=== PATIENT | female | born 1950 | race Caucasian/White ===

== ENCOUNTER → 2017-12-12 15:39 | Outpatient (CLI) | payer MEDICARE, SELFPAY ==
[2017-12-12 16:12] LABS: Add Manual Diff / Slide Review NO; Basophils Percent Auto 0.6 % (0-2); Eosinophils Percent Auto 2.7 % (2-4); Hematocrit 38.9 % (36-46); Hemoglobin 13.4 g/dL (12.0-16.0); Lymphocytes Percent Auto 35.5 % (25-40); Mean Corpuscular HGB Conc 34.4 % (30-36); Mean Corpuscular Hemoglobin 32.4 PG (26-34); Mean Corpuscular Volume 94.2 fL (80-100); Monocytes Percent Auto 8.2 % (3-14); Neutrophils Absolute Auto 3300 /uL (3000-5900); Platelet Count 311 X10^3/uL (150-400); Red Blood Cell Count 4.13 X10^6/uL (4.0-5.2); Red Cell Distribution Width 13.4 % (11.6-14.8); White Blood Cell Count 6.3 X10^3/uL (4.5-11.0)
[2017-12-12 16:20] LABS: Hemoglobin A1C% w Est Avg Glu 5.8 % (4.0-6.0)
[2017-12-12 16:24] LABS: Prothrombin Time 10.7 SECONDS (10.1-12.7)
[2017-12-12 16:28] LABS: Alanine Aminotransferase 72 IU/L (9-52); Albumin 4.8 g/dL (3.5-5.0); Albumin Globulin Ratio 1.6 (1.0-2.8); Alkaline Phosphatase 104 U/L (38-126); Aspartate Aminotransferase 59 IU/L (14-36); BUN Creatinine Ratio 18.3 (6-22); Bilirubin Total 0.4 mg/dL (0.2-1.3); Blood Urea Nitrogen 11 mg/dL (7-17); Calcium 10.3 mg/dL (8.4-10.2); Carbon Dioxide 28 mmol/L (22-32); Chloride 99 mmol/L (98-107); Cholesterol 249 mg/dL (140-199); Estimated Glomerular Filt Rate > 60.0 mL/min (>60); Glucose 129 mg/dL (80-110); HDL Cholesterol 76 mg/dL (40-60); HEMOLYSIS < 15 (0-50); LDL Cholesterol Calculated 138 mg/dL (<100); Potassium 4.4 mmol/L (3.4-5.1); Sodium 140 mmol/L (137-145); Total Protein 7.8 g/dL (6.3-8.2); Triglycerides 174 mg/dL (35-150)
[2017-12-12 17:19] LABS: Thyroid Stimulating Hormone 1.52 uIU/mL (0.47-4.68)
== END ==
PROVIDERS: PCP Physician Assistant
DX: F34.1 Dysthymic disorder (principal); G89.29 Other chronic pain; M54.5 Low back pain; Z51.81 Encounter for therapeutic drug level monitoring; Z01.818 Encounter for other preprocedural examination; I34.1 Nonrheumatic mitral (valve) prolapse; R73.09 Other abnormal glucose; I10 Essential (primary) hypertension
CPT/HCPCS: 36415; 80053; 80061; 83036; 84443; 85025; 85610

== ENCOUNTER → 2017-12-13 09:33 | Outpatient (CLI) | payer MEDICARE, SELFPAY ==
[2017-12-13 10:20] LABS: Appearance Urine UA CLEAR; Bilirubin Urine UA NEGATIVE (NEGATIVE); Color Urine UA YELLOW; Glucose Urine UA NEGATIVE (Normal); Ketones Urine UA TRACE (NEGATIVE); Leukocyte Esterase Urine UA 3+ (NEGATIVE); Nitrite Urine UA Negative (Negative); Occult Blood Urine UA TRACE-LYSED (Negative); Protein Urine UA TRACE (Negative); Specific Gravity Urine UA 1.015 (1.000-1.035)
[2017-12-13 10:50] LABS: RBC Urine 1-5/HPF (0-5/HPF)
[2017-12-13 10:51] LABS: Bacteria Urine Many (>30); Squamous Epithelial Cell Urine >30 /HPF; WBC Urine >100/HPF (0-5/HPF)
[2017-12-13 10:52] LABS: Culture Indicated Urine Cult Not Indicated
== END ==
PROVIDERS: PCP Physician Assistant
DX: F34.1 Dysthymic disorder (principal); G89.29 Other chronic pain; M54.5 Low back pain; Z51.81 Encounter for therapeutic drug level monitoring
CPT/HCPCS: 81003; 81015

== ENCOUNTER → 2017-12-25 14:38 | Outpatient (CLI) | payer MEDICARE, SELFPAY | PROVIDERS: PCP Physician Assistant; Visit Provider Physician Assistant | DX: Z87.440 Personal history of urinary (tract) infections (principal); Z01.818 Encounter for other preprocedural examination ==

== ENCOUNTER → 2018-02-08 14:54 | Outpatient (CLI) | payer MEDICARE, SELFPAY ==
[2018-02-08 15:47] LABS: Add Manual Diff / Slide Review NO; Basophils Percent Auto 1.4 % (0-2); Eosinophils Percent Auto 2.8 % (2-4); Hematocrit 39.8 % (36-46); Hemoglobin 13.5 g/dL (12.0-16.0); Lymphocytes Percent Auto 48.1 % (25-40); Mean Corpuscular Hemoglobin 32.3 PG (26-34); Monocytes Percent Auto 6.7 % (3-14); Neutrophils Absolute Auto 2000 /uL (3000-5900); Platelet Count 234 X10^3/uL (150-400); Red Blood Cell Count 4.19 X10^6/uL (4.0-5.2); Red Cell Distribution Width 13.4 % (11.6-14.8); White Blood Cell Count 4.8 X10^3/uL (4.5-11.0)
== END ==
PROVIDERS: Visit Provider Orthopaedic Surgery
DX: Z01.818 Encounter for other preprocedural examination (principal)
CPT/HCPCS: 36415; 85025

== ENCOUNTER 2018-02-19 11:23 | Emergency (ER) | payer MEDICARE, SELFPAY ==
[2018-02-19 11:30] VITALS: BP 177/98; PULSE 109; RESP 18; TEMP 36.9; O2SAT 97; BMI 25.0
[2018-02-19 11:48] VITALS: BP 202/102; PULSE 105; RESP 20; O2SAT 96
--- NOTE | 2018-02-19 12:02 | ED_ITS ---
HPI - Abdominal Pain General Chief Complaint: Abdominal Pain Stated Complaint: surgery yesterday and is now having pains Time Seen by Provider: 02/19/18 11:40 Source: patient Mode of arrival: ambulatory Limitations: no limitations History of Present Illness HPI narrative: Patient is a 67-year-old female who yesterday underwent a nerve stimulator placement under general anesthesia at the outpatient clinic at [facility]. States that after she awoke from her surgery yesterday she started to have bilateral lower abdominal pain. She states that she talked to the operative provider about this yesterday and he thought that it was secondary to the fact that she was on her abdomen during the surgery. She states that is a sharp pain that starts in the left lower quadrant radiates the right. No urinary symptoms no vaginal bleeding no bowel changes. No fevers. Related Data Home Medications Medication Instructions Recorded Confirmed [handicap placard] 1 ea MISCELLANEOUS DIRECTED 02/19/18 02/19/18 duloxetine [Cymbalta] 30 mg PO QAM 02/19/18 02/19/18 oxycodone-acetaminophen 1 - 2 tab PO Q4H PRN 02/19/18 02/19/18 Previous Rx's Medication Instructions Recorded escitalopram 10 mg tablet 10 mg PO QDAY #30 tab 11/23/17 lorazepam 1 mg tablet 1 mg PO BIDP PRN #60 tab 01/31/18 bupropion HCl XL 300 mg 24 hr 300 mg PO QDAY #30 tab 02/12/18 tablet, extended release gabapentin 600 mg tablet 600 mg PO .COMPLEX #180 tab 02/12/18 Allergies Allergy/AdvReac Type Severity Reaction Status Date / Time No Known Drug Allergies Allergy Verified 02/19/18 11:33 Review of Systems Constitutional Denies fever(s) and Denies headache(s) ENT Ears, Nose, Mouth, and Throat: Denies headache(s) Cardiovascular Denies chest pain and Denies dyspnea Respiratory Denies dyspnea Gastrointestinal Gastrointestinal: Reports abdominal pain, Denies nausea and Denies vomiting Genitourinary Denies dysuria Musculoskeletal Denies myalgias and Denies arthralgias Integumentary/Breasts Denies rash Neurologic Denies headache(s) Hematologic/Lymphatic Denies easy bleeding and Denies easy bruising [facility] Medical History Lumbar stenosis (Acute) Anxiety (Chronic 1997) Cataracts, bilateral (Chronic 2014) Chronic back pain (Chronic) Depression (Chronic 1997) Herpes (Chronic) Lumbar disc disease (Chronic) Hemorrhoids (Resolved 1972) Surgical History Hx of laminectomy (Resolved 2014) Family History Mother Mental health disorder Father Cancer Brother No problems noted. Social History Smoking Status: Current every day smoker Exam Initial Vital Signs Initial Vital Signs: Vital Signs Temperature 98.5 F 02/19/18 11:30 Pulse Rate 109 H 02/19/18 11:30 Respiratory Rate 18 02/19/18 11:30 Blood Pressure 177/98 H 02/19/18 11:30 Pulse Oximetry 97 02/19/18 11:30 Const General: cooperative, well developed, well groomed and No acute distress Orientation: alert, awake and oriented x3 HENMT Head: normal to inspection and normocephalic Resp Effort & Inspection: normal respiratory effort Auscultation: clear to auscultation bilaterally Cardio Rate: regular rate Pulses: radial pulses present GI Inspection: non-distended Palpation: soft, No firm and tender (Tender to palpation left lower quadrant and suprapubic without guarding or rebound) Back/Spine/Pelvis Back: No CVA tenderness Skin Other: Surgical bandages covering a midthoracic wound and also a right posterior hip wound. No active bleeding. Neuro General: alert, awake and oriented x3 Extrem General: normal to inspection and capillary refill normal Psych Appearance: grossly normal and well kempt Course Orders Ordered: Discontinued Medications Sodium Chloride (Normal Saline 0.9%) 1,000 mls @ 1,000 mls/hr IV BOLUS ONE Stop: 02/19/18 13:03 Last Admin: 02/19/18 12:49 Dose: Not Given Morphine Sulfate (Morphine) 4 mg IM NOW ONE Stop: 02/19/18 12:35 Last Admin: 02/19/18 12:48 Dose: 4 mg Vital Signs - 8 hr 02/19/18 11:30 02/19/18 11:48 02/19/18 12:13 Temperature 98.5 F Pulse Rate 109 H 105 H 96 H Respiratory Rate 18 20 16 Blood Pressure 177/98 H Blood Pressure [Left Arm] 202/102 H 171/95 H Pulse Oximetry 97 96 94 02/19/18 13:04 Temperature Pulse Rate 91 H Respiratory Rate 16 Blood Pressure Blood Pressure [Left Arm] 157/81 H Pulse Oximetry 95 MDM - Abdominal Pain MDM Narrative Medical decision making narrative: A discussion with the patient regarding her symptoms. I do feel that her abdominal pain today is directly related to the surgery that she had yesterday. It could be the result of her being on her abdomen during the procedure. Initially I ordered CT scan and labs to evaluate for intra-abdominal surgical issue such as diverticulitis. Prior to obtaining any of these the patient told nursing staff that she would like to talk with me again. During this re-evaluation the patient stated that she remembered that 10 years ago something very similar to this happened and she received a shot of pain medication in the symptoms went completely away and have not returned. I informed the patient that I would be willing to give her 1 injection of pain medication. After this discussion the patient opted not to have any labs drawn and not have the CT scan done. She acknowledged fact that we could be missing an intra-abdominal surgical issue or an infectious issue requiring antibiotics. She acknowledged this and stated that she would like to hold for now and see if the pain medication work for her. She was given 4 mg of morphine IM. She was given return precautions. Both her and her expressed understanding and agreement with this plan. Discharge Plan Departure Patient Disposition: Home Clinical Impression: Abdominal pain Discharge Date/Time: 02/19/18 13:21 Interventions: ED Discharge Assessment Last Done: 02/19/18 13:17 Instructions: DI for Abdominal Pain-Adult Activity Restrictions/Additional Instructions: recommend to continue all of your medications as instructed. Contact your primary care doctor for a follow-up. Return to the ER for any new symptoms, worsening pain, inability to tolerate oral intake or any other concerning symptoms. Prescriptions: No Action escitalopram oxalate [Lexapro] 10 mg tablet 10 mg PO QDAY Qty: 30 RF: 2 lorazepam 1 mg tablet 1 mg PO BIDP PRN (Reason: anxiety) Qty: 60 RF: 0 bupropion HCl 300 mg tablet extended release 24 hr 300 mg PO QDAY Qty: 30 RF: 0 gabapentin [Neurontin] 600 mg tablet 600 mg PO .COMPLEX Qty: 180 RF: 1 duloxetine [Cymbalta] 30 mg capsule,delayed release(DR/EC) 30 mg PO QAM RF: 0 oxycodone-acetaminophen 5-325 mg tablet 1 - 2 tab PO Q4H PRN (Reason: Pain, Severe) RF: 0 [handicap placard] 1 ea miscellaneous DIRECTED RF: 0
[2018-02-19 12:13] VITALS: BP 171/95; PULSE 96; RESP 16; O2SAT 94
[2018-02-19] MEDS: MORPHINE 4 MG/ML INJ IM (12:48)
--- NOTE | 2018-02-19 12:49 | PC.NURSE ---
Upon entering room to start IV and obtain blood work patient and spouse requested to wait to speak to the provider. Dr sahu notified. After discussion of plan of care. IV and CT cancelled
[2018-02-19 13:04] VITALS: BP 157/81; PULSE 91; RESP 16; O2SAT 95
--- NOTE | 2018-02-19 13:18 | PC.NURSE ---
pt states pain now down to 310/ much better than arrival. in [place] with assist. dc
== END 2018-02-19 13:21 | disposition home or self-care (01) ==
PROVIDERS: Emergency Provider Emergency Medicine; PCP Orthopaedic Surgery
DX: R10.9 Unspecified abdominal pain (principal)
CPT/HCPCS: 96372; 99283; J2270

== ENCOUNTER → 2018-08-15 12:16 | Outpatient (CLI) | payer OTHER, SELFPAY ==
--- NOTE | 2018-08-15 12:17 | DI.RAD.S_ITS ---
PROCEDURE: XR ANKLE LT MIN 3V INDICATIONS: left ankle pain TECHNIQUE: 4 views of the ankle were acquired. COMPARISON: None. FINDINGS: Bones: There is obliquely oriented intra-articular fracture of the distal fibula. There may be a small avulsion fracture involving the anterior margin of the tibial plafond. The ankle mortise is well-maintained. There are degenerative changes of the talonavicular joint. No suspicious osseous lesion or dislocation is evident. Soft tissues: There is a moderate-sized tibiotalar joint effusion. Achilles tendon appears normal in thickness. IMPRESSION: 1. Nondisplaced lateral malleolus fracture with intra-articular involvement. 2. Possible avulsion fracture involving the anterior margin of the tibial plafond. The ankle mortise is maintained. Dictated by: Jose Juan Gonzales M.D. on 08/15/2018 at 12:10 Approved by: Jose Juan Gonzales M.D. on 08/15/2018 at 12:12
== END ==
PROVIDERS: PCP Student in an Organized Health Care Education/Training Program; Visit Provider Physician Assistant
DX: M25.572 Pain in left ankle and joints of left foot (principal); S82.65XA Nondisplaced fracture of lateral malleolus of left fibula, initial encounter for closed fracture
CPT/HCPCS: 73610

== ENCOUNTER → 2018-09-04 11:23 | Outpatient (CLI) | payer OTHER, SELFPAY ==
[2018-09-04 17:32] LABS: Vitamin D 25 Hydroxy (D3) 14.1 ng/mL (30.0-100.0)
== END ==
PROVIDERS: Family Provider Student in an Organized Health Care Education/Training Program; PCP Student in an Organized Health Care Education/Training Program; Visit Provider Physician Assistant
DX: S82.65XA Nondisplaced fracture of lateral malleolus of left fibula, initial encounter for closed fracture (principal)
CPT/HCPCS: 36415; 82306

== ENCOUNTER 2018-09-28 23:04 | Emergency (ER) | payer OTHER, SELFPAY ==
[2018-09-28 23:08] VITALS: BP 140/80; PULSE 82; RESP 16; TEMP 36.7; O2SAT 97; BMI 24.1
--- NOTE | 2018-09-28 23:53 | ED_ITS ---
HPI - Wound/Laceration General Chief Complaint: Wound/Laceration Stated Complaint: cut over left eye from a fall Time Seen by Provider: 09/28/18 23:41 Source: patient Mode of arrival: ambulatory Limitations: no limitations History of Present Illness HPI narrative: 68-year-old female here for evaluation of injuries that she sustained after falling at home. Patient has a walking boot on her left lower extremity secondary to a fibula fracture. She states that she was reaching for her kick scooter when she fell over. Hitting her head on the ground. Sustaining a cut. She does not know when her last tetanus shot was. No loss of consciousness. No other injuries reported from the event. Related Data Home Medications Medication Instructions Recorded Confirmed [handicap placard] 1 ea MISCELLANEOUS DIRECTED 02/19/18 08/15/18 Previous Rx's Medication Instructions Recorded bupropion HCl XL 300 mg 24 hr 300 mg PO QDAY #30 tab 03/21/18 tablet, extended release gabapentin 600 mg tablet 600 mg PO .COMPLEX #180 tab 04/17/18 lorazepam 1 mg tablet 1 mg PO BIDP PRN #60 tab 06/18/18 escitalopram 10 mg tablet 10 mg PO DAILY #90 tab 07/23/18 Allergies Allergy/AdvReac Type Severity Reaction Status Date / Time No Known Drug Allergies Allergy Verified 08/15/18 11:47 Review of Systems Constitutional Denies fever(s), Denies frequent falls and Denies headache(s) Eyes Denies change in vision and Denies diplopia ENT Ears, Nose, Mouth, and Throat: Denies vertigo, Denies dizziness, Denies headache(s), Denies neck pain, Denies tinnitus and Denies sore throat Cardiovascular Denies chest pain and Denies dyspnea Respiratory Denies dyspnea Gastrointestinal Gastrointestinal: Denies abdominal pain Musculoskeletal Denies back pain, Denies myalgias, Denies arthralgias and Denies neck pain Integumentary/Breasts Comments: Cut to left side of face above the eye Neurologic Denies vertigo, Denies dizziness, Denies frequent falls and Denies headache(s) Hematologic/Lymphatic Denies easy bleeding and Denies easy bruising Allergic/Immunologic Denies urticaria [facility] Medical History Lumbar stenosis (Acute) Anxiety (Chronic 1997) Cataracts, bilateral (Chronic 2014) Chronic back pain (Chronic) Depression (Chronic 1997) Herpes (Chronic) Lumbar disc disease (Chronic) Hemorrhoids (Resolved 1972) Surgical History Hx of laminectomy (Resolved 2014) Family History Mother Mental health disorder Father Cancer Brother No problems noted. Social History Smoking Status: Current every day smoker Family History Mother Mental health disorder Father Cancer Brother No problems noted. Social History Smoking Status: Current every day smoker Exam Initial Vital Signs Initial Vital Signs: Vital Signs Temperature 98.0 F 09/28/18 23:08 Pulse Rate 82 09/28/18 23:08 Respiratory Rate 16 09/28/18 23:08 Blood Pressure 140/80 09/28/18 23:08 Pulse Oximetry 97 09/28/18 23:08 Const General: cooperative, well developed, well groomed and No acute distress Orientation: alert, awake and oriented x3 HENMT Head: No raccoon eyes and other (Cut above left eye) Ears: TM's normal bilaterally Nose: external nose normal Mouth: oral mucosae normal Teeth and gingiva: dentition normal Throat: posterior oropharynx normal Eyes Pupils: PERRL EOM: EOM intact bilaterally Other: Patient with tenderness to palpation what feels like a step-off on the lateral aspect of the left upper orbital rim. Resp Effort & Inspection: normal respiratory effort Auscultation: clear to auscultation bilaterally Cardio Rate: regular rate Rhythm: regular rhythm Skin Other: Patient with a 6 cm laceration to the lateral aspect of the left upper eyelid. Neuro General: alert and awake Cognition: normal cognition Speech: speech normal Gait: normal gait Extrem Other: Walking boot left lower extremity Psych Appearance: grossly normal and well kempt Procedures Laceration Repair Laceration 1: Site: face Side (If applicable): left Size (cm): 6 Description: linear Depth: involves muscle layer (Avulsed periosteum) Local Anesthetic: lidocaine 1% Amount of anesthesia used (mL): 6 Pre-repair: wound explored Skin layer closed with: other (Chromic) Size (cm): 4-0 Number of sutures: 17 Technique: simple, interrupted Subcutaneous layer closed with: chromic gut Size: 4-0 Number of sutures: 3 Technique: simple, interrupted Course Orders Ordered: ED Orders 09/28/18 23:57 CT facial bones wo con Stat CT head/brain wo con Stat Discontinued Medications Diphtheria/Tetanus/Acell Pertussis (Adacel) 0.5 ml IM .ONCE ONE Stop: 09/29/18 00:45 Last Admin: 09/29/18 00:47 Dose: 0.5 ml Vital Signs - 8 hr 09/28/18 23:08 09/29/18 01:28 Temperature 98.0 F Pulse Rate 82 83 Respiratory Rate 16 16 Blood Pressure 140/80 Blood Pressure [Left Arm] 133/66 Pulse Oximetry 97 96 MDM - Wound/Laceration Imaging Data CT scan - head: Radiologist's impression: No acute intracranial abnormality. Old lacunar infarct in the zainab. Mild left supraorbital frontal scalp soft tissue swelling. No underlying fracture. CT maxillofacial: Radiologist's impression: No acute facial fracture. MDM Narrative Medical decision making narrative: Neurovascularly intact. Tetanus was updated. Laceration was closed as described above. CT scan is negative for acute fractures. Patient was given care instructions and return precautions with regard to the fall and also the laceration and the stitches. She expressed understanding and agreement with plan. Discharge Plan Departure Patient Disposition: Home Clinical Impression: Laceration Fall Qualifiers: Encounter type: initial encounter Qualified Code(s): W19.XXXA - Unspecified fall, initial encounter Discharge Date/Time: 09/29/18 02:12 Interventions: ED Discharge Assessment Last Done: 09/29/18 02:11 Instructions: DI for Laceration Repair Activity Restrictions/Additional Instructions: The stitches that were placed today are absorbable which means they will come out on their own. You can shower like normal. You can use soap and water like normal. Do not scrub the area. Expect swelling so use ice. I would not be schroeder rprised if you have a black eye tomorrow. Contact your primary care doctor for a follow-up. Return to the emergency department for any new or worsening symptoms Prescriptions: No Action bupropion HCl 300 mg tablet extended release 24 hr 300 mg PO QDAY Qty: 30 RF: 5 gabapentin [Neurontin] 600 mg tablet 600 mg PO .COMPLEX Qty: 180 RF: 1 lorazepam 1 mg tablet 1 mg PO BIDP PRN (Reason: anxiety) Qty: 60 RF: 5 escitalopram oxalate 10 mg tablet 10 mg PO DAILY Qty: 90 RF: 1 [handicap placard] 1 ea miscellaneous DIRECTED RF: 0 Referrals: Aaron Do MD [Primary Care Provider] -
--- NOTE | 2018-09-28 23:57 | DI.CT.S_ITS ---
PROCEDURE: CT HEAD/BRAIN WO CON INDICATIONS: Fall with possible facial fracture TECHNIQUE: Noncontrast 4.5 mm thick angled axial sections acquired from the foramen magnum to the vertex, with coronal and sagittal reformats. For radiation dose reduction, the following was used: automated exposure control, adjustment of mA and/or kV according to patient size. COMPARISON: [facility], CT, CT FACIAL BONES WO CON, 09/29/2018, 0:17. FINDINGS: Image quality: Excellent. CSF spaces: Basal cisterns are patent. No extra-axial fluid collections. The ventricles are symmetric in size and shape. Brain: No intracranial bleeds or masses. There is cerebral volume loss for age, with resultant ventricular and sulcal prominence. There are periventricular and deep white matter chronic small vessel ischemic changes. There is a focal remote infarctions involving the right lungs, as on series 2 image 11. There is intracranial internal carotid artery atherosclerosis. Skull and face: Mild soft tissue swelling is seen within the left supraorbital region. No associated fracture is seen. Calvarium and visualized facial bones appear intact, without suspicious lesions. Incidental note is made of hyperostosis frontalis. This is not considered to be pathologic in a woman of this age. Sinuses: Visualized sinuses and mastoids are clear. IMPRESSION: Left supraorbital soft tissue swelling, without an associated fracture. No acute intracranial hemorrhage. No acute intracranial process is seen. Remote right zainab infarct. Note is made of age-appropriate brain parenchymal volume loss and chronic small vessel ischemic changes. Note: No significant discrepancy from the preliminary report. Dictated by: Asael Mariscal M.D. on 09/29/2018 at 7:47 Approved by: Asael Mariscal M.D. on 09/29/2018 at 7:51 Approved by: Asael Mariscal M.D. 09/29/2018 7:50
--- NOTE | 2018-09-28 23:57 | DI.CT.S_ITS ---
PROCEDURE: CT FACIAL BONES WO CON INDICATIONS: Fall with wound left superior eye concern for fracture TECHNIQUE: Noncontrast 2.5 mm thick axial images acquired from the mandible through the frontal sinuses, with coronal and sagittal reformatting. For radiation dose reduction, the following was used: automated exposure control, adjustment of mA and/or kV according to patient size. COMPARISON: [facility], CT, CT HEAD/BRAIN WO CON, 09/29/2018, 0:10. FINDINGS: Image quality: Excellent. Bones and teeth: Orbital moore are intact. Sinus moore show no fracture or deformity. Nasal bones and septum are intact. Visualized portions of the mandible demonstrate no fractures or subluxation. Zygomatic arches are intact. Pterygoid plates are intact. Visualized portions of the skull base and auditory canals are intact. Incidental note is made of hyperostosis frontalis. This is not considered to be pathologic in a woman of this age. Sinuses: Mucosal thickening is seen within the maxillary sinuses. There is thickening of the moore of the left maxillary sinus, which is suggestive of prior chronic sinus disease. Mastoid air cells are aerated. Soft tissues: Mild left supraorbital soft tissue swelling is seen. No enlarged lymph nodes. No soft tissue lacerations or debris. Vascular: Visualized vascular structures appear normal in the absence of contrast. Bony vascular foramina and canals are intact. IMPRESSION: Left supraorbital soft tissue swelling, without an associated facial fracture. Note: No significant discrepancy from the preliminary report. Dictated by: Asael Mariscal M.D. on 09/29/2018 at 7:51 Approved by: Asael Mariscal M.D. on 09/29/2018 at 7:54
[2018-09-29] MEDS: TET,DIPH,PERTUSS(ACELL),VAC/PF 0.5 ML SYRINGE IM (00:47)
--- NOTE | 2018-09-29 01:10 | PC.NURSE ---
Dr. Cooper at bedside to suture.
[2018-09-29 01:28] VITALS: BP 133/66; PULSE 83; RESP 16; O2SAT 96
== END 2018-09-29 02:12 | disposition home or self-care (01) ==
PROVIDERS: Emergency Provider Emergency Medicine; Family Provider Student in an Organized Health Care Education/Training Program; PCP Student in an Organized Health Care Education/Training Program
DX: S01.112A Laceration without foreign body of left eyelid and periocular area, initial encounter (principal); W19.XXXA Unspecified fall, initial encounter; Z23 Encounter for immunization
CPT/HCPCS: 12053; 70450; 70486; 90471; 99283; 99284; 90715

== ENCOUNTER → 2019-06-21 12:08 | Outpatient (CLI) | payer OTHER, SELFPAY ==
--- NOTE | 2019-06-21 12:10 | DI.RAD.S_ITS ---
PROCEDURE: XR RIBS RT MIN 3V W CXR 1V INDICATIONS: pain to lower posterior right ribs, r/o fx TECHNIQUE: 2 views of the right ribs were acquired, along with a single view chest. COMPARISON: None. FINDINGS: Surgical changes and devices: There is an epidural neurostimulator lead visualized injecting over the lower thoracic spine. Bones and chest wall: There are mildly displaced fractures of the right posterolateral 9th and 10th ribs. There are also old healed fractures of the right 3rd through 5th anterior ribs. No suspicious bony lesions. Overlying soft tissues appear unremarkable. Lungs and pleura: No pleural effusions or pneumothorax. Lungs appear clear. Mediastinum: Mediastinal contours appear normal. Heart size is normal. IMPRESSION: 1. Mildly displaced fractures of the right posterior 9th and 10th ribs. 2. Old healed fractures of the right 3rd through 5th anterior ribs. Dictated by: Leif Elizabeth M.D. on 06/21/2019 at 12:09 Approved by: Leif Elizabeth M.D. on 06/21/2019 at 12:11
== END ==
PROVIDERS: Family Provider Student in an Organized Health Care Education/Training Program; PCP Student in an Organized Health Care Education/Training Program; Referring Provider Physician Assistant; Visit Provider Physician Assistant
DX: S20.211A Contusion of right front wall of thorax, initial encounter (principal); S22.41XA Multiple fractures of ribs, right side, initial encounter for closed fracture; X58.XXXA Exposure to other specified factors, initial encounter
CPT/HCPCS: 71101

== ENCOUNTER → 2021-05-26 11:46 | Outpatient (CLI) | payer OTHER, SELFPAY ==
[2021-05-26 12:03] LABS: Add Manual Diff / Slide Review NO; Basophils Absolute Auto 0 /uL (0-100); Basophils Percent Auto 0.3 % (0-2); Eosinophils Absolute Auto 600 /uL (0-450); Eosinophils Percent Auto 5.8 % (2-4); Hematocrit 41.4 % (36-46); Lymphocytes Absolute Auto 2500 /uL (1100-4500); Lymphocytes Percent Auto 24.8 % (25-40); Mean Corpuscular HGB Conc 33.7 % (30-36); Mean Corpuscular Hemoglobin 30.2 PG (26-34); Mean Corpuscular Volume 89.5 fL (80-100); Monocytes Absolute Auto 800 /uL (0-900); Neutrophils Absolute Auto 6200 /uL (1500-7000); Neutrophils Percent Auto 61.1 % (50-75); Platelet Count 438 X10^3/uL (150-400); Red Blood Cell Count 4.63 X10^6/uL (4.0-5.2); Red Cell Distribution Width 12.9 % (11.6-14.8); White Blood Cell Count 10.1 X10^3/uL (4.5-11.0)
[2021-05-26 12:21] LABS: Alanine Aminotransferase 21 IU/L (<35); Albumin 3.9 g/dL (3.5-5.0); Albumin Globulin Ratio 1.3 (1.0-2.8); Alkaline Phosphatase 100 U/L (38-126); Aspartate Aminotransferase 26 IU/L (14-36); BUN Creatinine Ratio 18.4 (6-22); Bilirubin Total 0.7 mg/dL (0.2-1.3); Blood Urea Nitrogen 16 mg/dL (7-17); Calcium 10.4 mg/dL (8.4-10.2); Carbon Dioxide 29 mmol/L (22-32); Chloride 98 mmol/L (98-107); Estimated Glomerular Filt Rate > 60.0 mL/min (>60); Glucose 103 mg/dL (80-110); HEMOLYSIS 24 (0-50); Lipase 396 U/L (23-300); Potassium 4.3 mmol/L (3.4-5.1); Sodium 134 mmol/L (137-145); Total Protein 6.9 g/dL (6.3-8.2)
== END ==
PROVIDERS: Family Provider Student in an Organized Health Care Education/Training Program; PCP Student in an Organized Health Care Education/Training Program; Referring Provider Physician Assistant; Visit Provider Physician Assistant
DX: R10.30 Lower abdominal pain, unspecified (principal)
CPT/HCPCS: 36415; 80053; 83690; 85025

== ENCOUNTER → 2021-05-30 11:11 | Outpatient (CLI) | payer OTHER, SELFPAY ==
[2021-05-30 12:28] LABS: Clostridium Difficile Tox PCR Negative for C. diff (Negative)
== END ==
PROVIDERS: Family Provider Student in an Organized Health Care Education/Training Program; PCP Student in an Organized Health Care Education/Training Program; Referring Provider Physician Assistant; Visit Provider Physician Assistant
DX: R10.30 Lower abdominal pain, unspecified (principal)
CPT/HCPCS: 87045; 87177; 87493; 87899

== ENCOUNTER → 2022-06-20 12:26 | Outpatient (CLI) | payer OTHER, SELFPAY ==
--- NOTE | 2022-06-20 12:28 | DI.RAD.S_ITS ---
PROCEDURE: XR DEXA AXIAL SKELETON INDICATIONS: asymptomatic age related postmenopausal state COMPARISON: None. FINDINGS: This blank DEXA report has been sent in error by the PACS system. The correct and complete report will be forthcoming in 1-2 days. Thank you for your patience and understanding. Dictated by: Aisha Ma M.D. on 06/22/2022 at 8:29 Approved by: Aisha Ma M.D. on 07/13/2022 at 13:50
--- NOTE | 2022-06-20 12:28 | DI.MG.S_ITS ---
BILATERAL DIGITAL SCREENING MAMMOGRAM 3D/2D WITH CAD: 06/20/2022 CLINICAL: Routine screening. Family history of breast cancer. Comparison is made to exam dated: 06/16/2013 mammogram - outside location. Both breasts are heterogeneously dense, which may obscure small masses (category c / 51-75% glandular tissue). Current study was also evaluated with a Computer Aided Detection (CAD) system. No significant masses, calcifications, or other findings are seen in either breast. There has been no significant interval change. IMPRESSION: NEGATIVE There is no mammographic evidence of malignancy. A 1 year screening mammogram is recommended. Based on the Tyrer Cuzick model (a risk assessment model) the patient's lifetime risk is 5.8% and her 10 year risk is 3.7%. According to the ACR, ACS, and NCCN guidelines, an annual breast MRI exam along with mammogram is recommended if the patient's lifetime risk is 20% or greater. This exam was interpreted at Station ID: [id number]. NOTE: For mammograms, a report in lay terms will be sent to the patient. Approximately 15% of breast malignancies will not be visualized mammographically. In the management of a palpable breast mass, a negative mammogram must not discourage biopsy of a clinically suspicious lesion. Electronically Signed By: Radames Lyman M.D., jr/madina:06/20/2022 13:35:28 letter sent: Normal Exam ACR BI-RADS Category 1: Negative [id number]
== END ==
PROVIDERS: Family Provider Student in an Organized Health Care Education/Training Program; PCP Student in an Organized Health Care Education/Training Program; Referring Provider Student in an Organized Health Care Education/Training Program; Visit Provider Student in an Organized Health Care Education/Training Program
DX: Z78.0 Asymptomatic menopausal state (principal); Z12.31 Encounter for screening mammogram for malignant neoplasm of breast; Z80.3 Family history of malignant neoplasm of breast; Z13.820 Encounter for screening for osteoporosis; F17.200 Nicotine dependence, unspecified, uncomplicated
CPT/HCPCS: 77063; 77067; 77080

== ENCOUNTER → 2023-08-29 14:39 | Outpatient (CLI) | payer OTHER, SELFPAY ==
[2023-08-29 15:18] LABS: Add Manual Diff / Slide Review NO; Basophils Absolute Auto 100 /uL (0-100); Basophils Percent Auto 1.2 % (0-2); Eosinophils Absolute Auto 200 /uL (0-450); Eosinophils Percent Auto 1.6 % (2-4); Hematocrit 41.4 % (36-46); Hemoglobin 14.1 g/dL (12.0-16.0); Lymphocytes Absolute Auto 2800 /uL (1100-4500); Lymphocytes Percent Auto 29.2 % (25-40); Mean Corpuscular HGB Conc 34.1 % (30-36); Mean Corpuscular Hemoglobin 31.1 PG (26-34); Mean Corpuscular Volume 91.2 fL (80-100); Monocytes Absolute Auto 700 /uL (0-900); Monocytes Percent Auto 7.5 % (3-14); Neutrophils Absolute Auto 5800 /uL (1500-7000); Neutrophils Percent Auto 60.5 % (50-75); Platelet Count 322 X10^3/uL (150-400); Red Blood Cell Count 4.53 X10^6/uL (4.0-5.2); Red Cell Distribution Width 13.1 % (11.6-14.8); White Blood Cell Count 9.6 X10^3/uL (4.5-11.0)
[2023-08-29 15:59] LABS: Alanine Aminotransferase 20 IU/L (<35); Albumin 4.9 g/dL (3.5-5.0); Albumin Globulin Ratio 1.8 (1.0-2.8); Alkaline Phosphatase 109 U/L (38-126); BUN Creatinine Ratio 17.5 (6-22); Blood Urea Nitrogen 14 mg/dL (7-17); Calcium 10.5 mg/dL (8.4-10.2); Carbon Dioxide 29 mmol/L (22-32); Estimated Glomerular Filt Rate > 60 mL/min (>60); Globulin 2.7 g/dL (1.7-4.1); HEMOLYSIS < 15 (0-50); Potassium 4.5 mmol/L (3.4-5.1); Sodium 135 mmol/L (137-145); Total Protein 7.6 g/dL (6.3-8.2)
[2023-08-29 16:01] LABS: Aspartate Aminotransferase 25 IU/L (14-36); Bilirubin Total 0.9 mg/dL (0.2-1.3); Chloride 100 mmol/L (98-107); Glucose 102 mg/dL (80-110)
== END ==
PROVIDERS: Family Provider Student in an Organized Health Care Education/Training Program; PCP Family Medicine; Referring Provider Family Medicine; Visit Provider Family Medicine
DX: Z79.899 Other long term (current) drug therapy (principal)
CPT/HCPCS: 36415; 80053; 85025

== ENCOUNTER → 2024-07-11 12:49 | Outpatient (CLI) | payer OTHER, SELFPAY ==
--- NOTE | 2024-07-11 12:50 | DI.RAD.S_ITS ---
PROCEDURE: XR SHOULDER LT MIN 2V INDICATIONS: follow-up persistent pain after dislocation/reduction TECHNIQUE: 3 views of the shoulder were acquired. COMPARISON: None. FINDINGS: Bones: No fractures or dislocations. The humeral head is mildly high-riding and there is moderate glenohumeral joint space narrowing with marginal osteophytosis. Mild hypertrophic acromioclavicular arthropathy noted. No suspicious bony lesions. Visualized ribs appear intact. Soft tissues: No suspicious soft tissue calcifications. IMPRESSION: Mild degenerative change without evidence of acute bony abnormality. Dictated by: Tarun Villa M.D. on 07/12/2024 at 6:51 Approved by: Tarun Villa M.D. on 07/12/2024 at 6:51
== END ==
PROVIDERS: PCP Family Medicine; Referring Provider Family Medicine; Visit Provider Family Medicine
DX: G89.11 Acute pain due to trauma (principal); M25.519 Pain in unspecified shoulder; Z87.39 Personal history of other diseases of the musculoskeletal system and connective tissue
CPT/HCPCS: 73030